=== PATIENT | female | born 1950 | race Caucasian/White ===

== ENCOUNTER 2024-04-12 06:19 | Day surgery (SDC) | payer MEDICARE, SELFPAY ==
[2024-04-01 10:38] VITALS: BMI 23.6
[2024-04-01 10:44] LABS: Hematocrit 44.5 % (37.0-47.0); Mean Corp Hgb Conc. 33.7 g/dL (33.0-37.0); Mean Corpuscular Hgb 33.6 pg (27.0-31.0); Mean Corpuscular Volume 99.8 fL (81.0-99.0); Mean Platelet Volume 12.4 fL (7.4-10.4); Platelet Count 116 10^3/uL (130-400); Red Blood Cell Count 4.46 10^6/uL (4.20-5.40); Red Cell Dist. Width 13.3 % (11.5-14.5); White Blood Cell Count 4.6 10^3/uL (4.8-10.8)
[2024-04-01 11:22] LABS: Blood Urea Nitrogen 20 mg/dl (7-17); Calcium 9.6 mg/dl (8.4-10.2); Carbon Dioxide 30 mmol/L (22-30); Chloride 100 mmol/L (98-107); Estimated Creatinine Clearance 62 ml/min; Glucose 90 mg/dl (70-99); Potassium 4.7 mmol/L (3.5-5.1); Sodium 139 mmol/L (135-145); eGFR > 60.00
[2024-04-04 08:31] VITALS: BMI 23.6
[2024-04-12] VITALS (12 sets, daily range): BP systolic 109–168; BP diastolic 57–83; BMI 23.6
[2024-04-12] MEDS: HEPARIN 5000 UNITS SC ×2 (06:58→07:00)
[2024-04-12] MEDS: Pyridium 200 MG PO (07:09)
[2024-04-12] MEDS: DILAUDID 0.5 MG IV ×2 (10:33→10:50)
[2024-04-12] MEDS: TORADOL 15 MG IV (10:56)
[2024-04-12] MEDS: OFIRMEV 100 IV (11:11)
== END 2024-04-12 14:28 | disposition home or self-care (01) ==
LOC: SDS 06:19
PROVIDERS: ATTENDING PHYSICIAN Obstetrics & Gynecology; FAMILY PHYSICIAN Family Medicine
DX: N81.11 Cystocele, midline (principal); N39.3 Stress incontinence (female) (male); N32.0 Bladder-neck obstruction
CPT/HCPCS: 57425; 57287; 36415; 80048; 85027; 86850; 86900; 86901; 93005; C1763; C1771